=== PATIENT | female | born 1940 | race Caucasian/White ===

== ENCOUNTER 2017-02-08 07:48 | Day surgery (SDC) | payer MEDICARE, BC, OTHER ==
--- NOTE | ~2017-02-08 | EGD ---
EGD REPORT [facility] [address] [id number] NAME: MO NOBLES : [birth year] STATUS : REG [facility] PAT#: [id number] AGE: 76 ADM/REG DATE : 02/08/17 MR#: [id number] REPORT SERV DATE: 02/08/17 DICTATED BY: ANTWAN SANTILLAN DATE: 02/08/17 REPORT STATUS : Draft TRANSCRIBED BY: [facility] DATE: 02/08/17 [facility] Patient Name: Mo Nobles Date of : 1940 Attending MD: ANTWAN SANTILLAN MD Procedure Date No Time: 02/08/2017 Procedure: Colonoscopy Indications: High risk colon cancer surveillance: Personal history of non-advanced adenoma Referring MD: NIDA RIDER MD Medicines: Propofol per Anesthesia Complications: No immediate complications. Procedure: Pre-Anesthesia Assessment: - ASA Grade Assessment: III - A patient with severe systemic disease. After I obtained informed consent, the scope was passed under direct vision. Throughout the procedure, the patient's blood pressure, pulse, and oxygen saturations were monitored continuously. The CF [id number] was introduced through the anus and advanced to the cecum, identified by appendiceal orifice and ileocecal valve. The colonoscopy was performed without difficulty. The patient tolerated the procedure well. The quality of the bowel preparation was good. Findings: The perianal and digital rectal examinations were normal. The colon (entire examined portion) appeared normal. A sessile polyp was found in the cecum. The polyp was 2 mm in size. The polyp was removed with a cold biopsy forceps. Resection and retrieval were complete. A sessile polyp was found in the descending colon. The polyp was 5 mm in size. The polyp was removed with a cold snare. Resection and retrieval were complete. A few small-mouthed diverticula were found in the recto-sigmoid colon and in the sigmoid colon. Non-bleeding internal hemorrhoids were found during retroflexion and were mild, small and Grade I (internal hemorrhoids that do not prolapse). Impression: - The entire examined colon is normal. - One 2 mm polyp in the cecum. Resected and retrieved. - One 5 mm polyp in the descending colon. Resected and retrieved. - Diverticulosis in the recto-sigmoid colon and in the sigmoid colon. EGD REPORT [place] [id number] [place]. [address] NAME: MO NOBLES : [birth year] STATUS : REG [facility]#: [id number] AGE: 76 ADM/REG DATE : 02/08/17 MR#: [id number] REPORT SERV DATE: 02/08/17 DICTATED BY: ANTWAN SANTILLAN DATE: 02/08/17 REPORT STATUS : Draft TRANSCRIBED BY: [employer] [facility] DATE: 02/08/17 - Non-bleeding internal hemorrhoids. Recommendation: - Patient has a contact number available for emergencies. The signs and symptoms of potential delayed complications were discussed with the patient. Return to normal activities tomorrow. Written discharge instructions were provided to the patient. - Return to previous diet. - Continue present medications. - Await pathology results. - Repeat colonoscopy in 3 - 5 years for surveillance based on pathology results. - Return to my office as previously scheduled. - Discharge patient to home. Procedure Code(s): --- Professional --- 10909, Colonoscopy, flexible, proximal to splenic flexure; with removal of tumor(s), polyp(s), or other lesion(s) by snare technique 92962, 59, Colonoscopy, flexible, proximal to splenic flexure; with biopsy, single or multiple Diagnosis Code(s): --- Professional --- K64.0, First degree hemorrhoids K57.30, Diverticulosis of large intestine without perforation or abscess without bleeding D12.4, Benign neoplasm of descending colon D12.0, Benign neoplasm of cecum Z86.010, Personal history of colonic polyps CPT copyright 2013 [employer]. All rights reserved. The codes documented in this report are preliminary and upon supervisor stock ranch review may be revised to meet current compliance requirements. Antwan Santillan MD ANTWAN SANTILLAN MD 02/08/2017 11:35 AM This report has been signed electronically. Number of Addenda: 0 Note Initiated On: 02/08/2017 10:47 AM Scope Withdrawal Time 0 hours 15 minutes 17 seconds [id number] [place] [id number]
[~2017-02-08 07:48] MED LIST: ASAB PO; ATV.5 PO; COZ50 PO; DEPAKOT250 PO; IMDUR30 PO; IRON325 MG PO; LOP25 PO; LOP50 PO; LORTAB 5 PO; LYRICA50 PO; MICARDIS20 MG PO; PLAVIX PO; PRILO PO; PROTONIX PO; ROXICODONE15 MG PO; SINGULAIR1 PO; SLOWMAG PO; TEG200 PO; ZOCOR20 PO
[2017-02-22] MEDS ORDERED: TEG200 PO (17:34)
[2017-02-22] MEDS ORDERED: ASAB PO (17:34)
[2017-02-22] MEDS ORDERED: DEPAKOT250 PO (17:35)
[2017-02-22] MEDS ORDERED: IMDUR30 PO (17:35)
[2017-02-22] MEDS ORDERED: DEPAKOT500 PO (17:35)
[2017-02-22] MEDS ORDERED: EMLA TOP (17:36)
[2017-02-22] MEDS ORDERED: ATV.5 PO (17:36)
[2017-02-22] MEDS ORDERED: SINGULAIR1 PO (17:37)
[2017-02-22] MEDS ORDERED: TOPXL50 PO (17:37)
[2017-02-22] MEDS ORDERED: ROXICODONE15 MG PO (17:37)
[2017-02-22] MEDS ORDERED: ZOCOR20 PO (17:38)
[2017-02-22] MEDS ORDERED: PRILO PO (17:38)
[2017-02-22] MEDS ORDERED: D.O.S.100 MG PO (17:39)
[2017-02-22] MEDS ORDERED: STIOLTO RESPIMAT4 GM INH (17:39)
[2017-02-22] MEDS ORDERED: FLAG500TAB PO (17:40)
[2017-02-22] MEDS ORDERED: CIP5 PO (17:40)
[2017-02-22] MEDS ORDERED: ZOFRAN8 PO (17:41)
[2017-02-28] MEDS ORDERED: FLUCON1 PO (10:36)
[2017-02-28] MEDS ORDERED: LEVAQUIN750 MG PO (10:40)
[2017-02-28] MEDS ORDERED: NYSTATPOW TOP (10:44)
[2017-02-28] MEDS ORDERED: MIRALAX POWDER1 PKT PO (10:47)
[2017-02-28] MEDS ORDERED: FLORASTOR250 MG PO (10:50)
[2017-02-28] MEDS ORDERED: FLAG500TAB PO (10:54)
== END 2017-02-08 23:59 | disposition home or self-care (01) ==
LOC: DMU 07:48
PROVIDERS: Internal Medicine Gastroenterology
PROC: 0DBH8ZX Excision of Cecum, Via Natural or Artificial Opening Endoscopic, Diagnostic (ICD-10-PCS; principal; 2017-02-08 09:30)
PROC: 0DBM8ZZ Excision of Descending Colon, Via Natural or Artificial Opening Endoscopic (ICD-10-PCS; 2017-02-08 09:30)
DX: D12.0 Benign neoplasm of cecum (principal); D12.4 Benign neoplasm of descending colon; K64.0 First degree hemorrhoids; K57.30 Diverticulosis of large intestine without perforation or abscess without bleeding; I25.10 Atherosclerotic heart disease of native coronary artery without angina pectoris; I10 Essential (primary) hypertension; E66.9 Obesity, unspecified; G40.909 Epilepsy, unspecified, not intractable, without status epilepticus; G47.33 Obstructive sleep apnea (adult) (pediatric); K21.9 Gastro-esophageal reflux disease without esophagitis; Z86.010 Personal history of colon polyps; Z88.5 Allergy status to narcotic agent; Z88.8 Allergy status to other drugs, medicaments and biological substances
CPT/HCPCS: 88305

== ENCOUNTER 2017-03-07 23:20 | Emergency (ER) | payer MEDICARE, BC, OTHER ==
[~2017-03-07 23:20] MED LIST changes: +CIP5 PO; +D.O.S.100 MG PO; +DEPAKOT500 PO; +EMLA TOP; +FLAG500TAB PO; +FLORASTOR250 MG PO; +FLUCON1 PO; +LEVAQUIN750 MG PO; +MIRALAX POWDER1 PKT PO; +NYSTATPOW TOP; +STIOLTO RESPIMAT4 GM INH; +TOPXL50 PO; +ZOFRAN8 PO
[2017-03-07 23:55] LABS: BASOPHILS 0.3 %; BASOPHILS ABSOLUTE 0.01 10/3/uL (0.0-0.16); EOSINOPHILS 1.3 %; EOSINOPHILS ABSOLUTE 0.05 10/3/uL (0.0-0.53); IMMATURE GRANULOCYTES ABSOLUTE 0.04 10/3/uL (0.0-0.11); LYMPHOCYTES 14.4 %; LYMPHOCYTES ABSOLUTE 0.56 10/3/uL (0.67-4.30); MEAN CORPUS HGB CONC 33.2 g/dL (32.0-36.0); MEAN CORPUSCULAR HEMOGLOB 29.8 pg (26.0-34.0); MEAN PLATELET VOLUME 9.2 fL (9.2-13.0); MONOCYTES 10.8 %; MONOCYTES ABSOLUTE 0.42 10/3/uL (0.21-1.20); NEUTROPHILS 72.2 %; PLATELET COUNT 165 10/3/uL (150-400); RBC DISTRIBUTION WIDTH 13.7 % (12.0-16.0); RED CELL COUNT 4.59 10/6/uL (4.0-5.6); WHITE BLOOD CELLS 3.9 10/3/uL (4.5-10.5)
[2017-03-07 23:56] LABS: HEMATOCRIT 41.3 % (36.0-48.0); HEMOGLOBIN 13.7 g/dL (12.0-16.0); MANUAL DIFF NO %
[2017-03-08 00:11] LABS: A/G RATIO 0.7 (0.7-1.9); ALBUMIN 2.7 G/DL (3.5-5.0); ALKALINE PHOSPHATASE 68 U/L (45-117); BUN (BLOOD UREA NITROGEN) 17 MG/DL (6-23); CALCIUM, SERUM 8.8 MG/DL (8.5-10.4); CHLORIDE, SERUM 107 MMOL/L (96-112); CO2 (CARBON DIOXIDE) 27 MMOL/L (24-34); CREATININE 0.42 MG/DL (0.55-1.02); DIRECT BILIRUBIN 0.1 MG/DL (0.0-0.4); GFR AFRICAN AMERICAN 115 ML/MIN (>=60); GFR NON AFRICAN AMERICAN 100 ML/MIN (>=60); GLOBULIN 3.8 G/DL (2.5-4.1); GLUCOSE, SERUM 109 MG/DL (60-99); INDIRECT BILIRUBIN(NOT ORDER) 0.2 MG/DL (0.1-0.9); LACTATE 1.1 MMOL/L (0.3-2.4); POTASSIUM, SERUM 3.7 MMOL/L (3.5-5.3); SGOT(AST) 18 U/L (5-40); SGPT(ALT) 17 U/L (5-65); SODIUM, SERUM 144 MMOL/L (135-148); TOTAL BILIRUBIN 0.3 MG/DL (0-1.2); TOTAL PROTEIN 6.5 G/DL (6.0-8.5)
[2017-03-08 00:40] LABS: PROCALCITONIN <0.05 ng/mL (<0.5)
[2017-03-08 03:24] LABS: ASCORBIC ACID (UR NOT ORDER) NEG (NEG); BILIRUBIN, URINE MODERATE (NEG); ER URINALYSIS TAT 0 Hrs 13 Mins; KETONE, URINE 80 MG/DL (NEG); LEUKOCYTE ESTERASE(NOT OR SMALL (NEG); NITRITE (URINE) NEG (NEG); WBC (NOT ORDERED) (RFLEX) 70 (0-5)
[2017-03-08 04:51] LABS: ASCORBIC ACID (UR NOT ORDER) NEG (NEG); BILIRUBIN, URINE NEGATIVE (NEG); KETONE, URINE 80 MG/DL (NEG); LEUKOCYTE ESTERASE(NOT OR TRACE (NEG); NITRITE (URINE) NEG (NEG); WBC (NOT ORDERED) (RFLEX) 3 (0-5)
== END 2017-03-08 06:25 | disposition home or self-care (01) ==
LOC: ER 23:20
PROVIDERS: Nurse Practitioner
DX: K92.1 Melena (principal); R10.32 Left lower quadrant pain; R19.7 Diarrhea, unspecified; I10 Essential (primary) hypertension; I25.2 Old myocardial infarction; Z95.5 Presence of coronary angioplasty implant and graft; K21.9 Gastro-esophageal reflux disease without esophagitis; F41.9 Anxiety disorder, unspecified; D64.9 Anemia, unspecified; E78.5 Hyperlipidemia, unspecified; Z88.5 Allergy status to narcotic agent; Z88.1 Allergy status to other antibiotic agents; Z79.82 Long term (current) use of aspirin; Z79.899 Other long term (current) drug therapy
CPT/HCPCS: 74176; 80053; 81001; 82248; 83605; 83690; 84145; 85025; 87045; 87046; 87046-59; 87077; 87086; 87186; 87328; 87329; 87493; 87493-59; 87899; 87899-59; 89055; 96374; 99285; J2405